=== PATIENT | male | born 1990 | race Caucasian/White ===

== ENCOUNTER 2024-04-24 20:19 | Emergency (ER) | payer OTHER, SELFPAY ==
[2024-04-24 20:53] VITALS: BP 161/80; PULSE 80; RESP 16; TEMP 36.6; O2SAT 98; BMI 30.7
[2024-04-24 22:34] VITALS: BP 156/92; PULSE 71; RESP 18; TEMP 36.7; O2SAT 98
[2024-04-25 00:49] VITALS: BP 148/102; PULSE 74; RESP 18; O2SAT 97
--- NOTE | 2024-04-25 01:45 | ED.WOUNDLAC ---
HPI - Wound/Laceration General Chief Complaint: Wound/Laceration Stated Complaint: ingrown toenail rt foot Time Seen by Provider: 04/25/24 01:45 Source: patient Mode of arrival: Ambulatory Limitations: no limitations Related Data Allergies Allergy/AdvReac Type Severity Reaction Status Date / Time No Known Drug Allergies Allergy Verified 04/24/24 20:57 Review of Systems Review of Systems ROS Unobtainable: All systems reviewed & are unremarkable except as noted in HPI and below Patient History Social History Smoking Status: Current some day smoker Smoking Status: Current some day smoker tobacco type: vaping alcohol intake frequency: holidays/special occasions only Substance Use Type: does not use Exam Initial Vital Signs Initial Vital Signs: Vital Signs Temperature 97.9 F 04/24/24 20:53 Pulse Rate 80 04/24/24 20:53 Respiratory Rate 16 04/24/24 20:53 Blood Pressure 161/80 H 04/24/24 20:53 Pulse Oximetry 98 04/24/24 20:53 Oxygen Delivery Method Room Air 04/24/24 20:53 Course Vital Signs Vital signs: Vital Signs - 8 hr 04/24/24 20:53 04/24/24 22:34 04/25/24 00:49 Temperature 97.9 F 98.1 F Pulse Rate 80 71 74 Respiratory Rate 16 18 18 Blood Pressure 161/80 H 156/92 H 148/102 H Pulse Oximetry 98 98 97 Oxygen Delivery Method Room Air Room Air Room Air
--- NOTE | 2024-04-25 01:51 | ED.WOUNDLAC ---
HPI - Wound/Laceration General Chief Complaint: Wound/Laceration Stated Complaint: ingrown toenail rt foot Time Seen by Provider: 04/25/24 01:45 Source: patient Mode of arrival: Ambulatory History of Present Illness HPI narrative: 33-year-old male no reported medical issues who presents with complaint of ingrown toenail in the right great toe. Patient states has been present for approximately 2 months. Has had infections with it in the past was on oral antibiotics. Was seen at an urgent care emergency department and had discussion about taking off the nail but after discussion elected not to. Patient states the swelling has been chronically persistent. Has cut the nail at an angle so the majority of the edge of the nail is actually gone. Patient states in the past week and a half to 2 weeks swelling has increased again, no drainage. States minimally painful but not significant increase in pain. Patient states that he has been trying to set up follow up [facility] but has not seen them. Related Data Previous Rx's Medication Instructions Recorded sulfamethoxazole 800 1 tab PO BID #14 tabs 04/25/24 mg-trimethoprim 160 mg tablet (Bactrim DS) Allergies Allergy/AdvReac Type Severity Reaction Status Date / Time No Known Drug Allergies Allergy Verified 04/25/24 02:41 Review of Systems Review of Systems ROS Unobtainable: All systems reviewed & are unremarkable except as noted in HPI and below Patient History Social History Smoking Status: Current some day smoker Smoking Status: Current some day smoker tobacco type: vaping alcohol intake frequency: holidays/special occasions only Substance Use Type: does not use Exam Narrative Exam Narrative: GENERAL: Alert and oriented x three, male in mild distress HEENT: Head normocephalic, atraumatic, EOMI, pupils reactive, face symmetric, moist mucous membranes NECK: Supple, full range of motion CARDIOVASCULAR: Regular rate and rhythm without murmurs, rubs or gallops. RESPIRATORY: Breath sounds equal bilaterally, no wheezes rales or rhonchi. EXT: Patient's right great toe has swelling and induration the medial edge of the nail, there is small amount of serosanguineous discharge. Patient is actually trimmed the nail in the medial corner of the nail has actually been removed by the patient. It is slightly ragged but no large pieces or edges protruding. The ear with the majority of the swelling is the nail is actually gone., there is no purulent drainage. There is no fluctuance. There is no warmth. NEUROLOGICAL: Cranial nerves II through XII grossly intact. Moving all extremities SKIN: Warm, dry, no petechiae, no rashes or lesions. Initial Vital Signs Initial Vital Signs: Vital Signs Temperature 97.9 F 04/24/24 20:53 Pulse Rate 80 04/24/24 20:53 Respiratory Rate 16 04/24/24 20:53 Blood Pressure 161/80 H 04/24/24 20:53 Pulse Oximetry 98 04/24/24 20:53 Oxygen Delivery Method Room Air 04/24/24 20:53 Course Orders Ordered: Discontinued Medications Lidocaine/Prilocaine (Lidocaine/Prilocaine 5 Gm) 5 gm TOP NOW ONE Stop: 04/25/24 02:01 Last Admin: 04/25/24 02:15 Dose: 5 gm Documented By: [facility] Vital Signs Vital signs: Vital Signs - 8 hr 04/24/24 20:53 04/24/24 22:34 04/25/24 00:49 Temperature 97.9 F 98.1 F Pulse Rate 80 71 74 Respiratory Rate 16 18 18 Blood Pressure 161/80 H 156/92 H 148/102 H Pulse Oximetry 98 98 97 Oxygen Delivery Method Room Air Room Air Room Air MDM - Wound/Laceration MDM Narrative Medical decision making narrative: Discussed with patient does not have a complete wedge resection but he is actually removed portion of the nail already in the area of swelling does not have much nail underneath it. It has not it is swollen but is not particularly tender he has not soft or fluctuant. Suspect it is more from chronic irritation there is a little bit of serosanguineous drainage. Discussed we can remove the patient's nail after discussion patient elects not to perform this. We did discuss it would be beneficial to follow up with Podiatry. I would have him continue Epsom salt soaks which he has not been doing. Continuing to help with the swollen area away from the nail all the majority of the nail is not present next to it. And was given a prescription for oral antibiotic. Discussed return precautions all questions answered. Discharge Plan Departure Patient Disposition: Home Clinical Impression: Ingrowing toenail of right foot Activity Restrictions/Additional Instructions: Do recommend following up with Podiatry. Contacts included below. Do Epsom salt soaks least once daily, you can take a small amount of gotten or dental floss along the edge of the nail to help it go up and over the swelling. Take oral antibiotics until completed. Prescription printed. If you have rapidly increasing swelling, pain, fevers or purulent drainage please return. Prescriptions: New sulfamethoxazole-trimethoprim [Bactrim DS] 800-160 mg tablet 1 tab PO BID Qty: 14 0RF Referrals: Renetta Green DPM [Physician] - Stand Alone Forms: Patient Portal/API
[2024-04-25] MEDS: LIDOCAINE/PRILOCAINE 5 GM TOP (02:15)
[2024-04-25 04:09] VITALS: BP 160/105; PULSE 65; RESP 16; O2SAT 99
== END 2024-04-25 04:11 | disposition home or self-care (01) ==
PROVIDERS: Emergency Provider Emergency Medicine
DX: L60.0 Ingrowing nail (principal)
CPT/HCPCS: 99282; 99283